=== PATIENT | male | born 1980 | race Caucasian/White ===

== ENCOUNTER 2017-01-19 19:13 | Emergency (ER) | payer OTHER ==
[2017-01-19 20:36] LABS: Hematocrit 44 % (42-52); Hemoglobin 15.5 g/dl (14.0-18.0); Mean Corpuscular HGB Conc 35 g/dl (31-36); Mean Corpuscular Hemoglobin 31 pg (27-31); Mean Corpuscular Volume 90 fL (80-94); Mean Platelet Volume 7 um3 (7.4-10.4); Red Blood Count 4.95 10^6/ul (4.0-5.4); Red Cell Distribution Width 13 % (10.5-15)
[2017-01-19 20:56] LABS: Albumin 4.3 g/dL (3.2-5.2); BUN/Creatinine Ratio 14.4 (8-20); Calcium 9.1 mg/dL (8.6-10.3); EGFR African American 113.3 (>60); EGFR Non-African American 88.1 (>60); Globulin 2.6 g/dL (2-4); Total Bilirubin 0.4 mg/dL (0.2-1.0); Total Protein 6.9 g/dL (6.4-8.9)
--- NOTE | 2017-01-19 21:08 | RAD ---
INDICATION: Chest pain COMPARISON: None TECHNIQUE: PA and lateral dual-energy views were obtained. FINDINGS: Bones/Soft Tissues: There are no acute bony findings. Cardiomediastinal: The cardiomediastinal silhouette is normal. Lungs: There are no infiltrates. Pleura: There are no pleural effusions. Other: None IMPRESSION: NO ACTIVE DISEASE.
--- NOTE | 2017-01-19 21:47 | ED ---
caleb Watson Timothy, scribed for Dennis Hernandez MD on 01/19/17 at 2016 . HPI Chest Pain - HPI Summary HPI Summary: William You is a 36 yo male presenting to [facility] with 8/10 constant left sided CP since 0900 this morning. He states the pain is worse when he lies on his side or back, and it hurts for him to clench his abd muscles, but resolves when he is sitting up. He states that he has had this pain before, but usually it resolves on its own quickly, but this is the first time it has stayed with him throughout the day. Pt denies cardiac Hx as well as SOB, diaphoresis, N/V. Pt states CP has resolved per triage. His Mhx includes depression, anxiety. - History of Current Complaint Chief Complaint: EDChestPainROMI Time Seen by Provider: 01/19/17 20:11 Hx Obtained From: Patient Onset/Duration: Started Hours Ago, Resolved Time of Onset: 09:00 Timing: Constant Initial Severity: Moderate Current Severity: Moderate Pain Intensity: 8 Pain Scale Used: 0-10 Numeric Chest Pain Location: Diffuse Chest Pain Radiates: No Aggravating Factor(s): Position - side and back Alleviating Factor(s): Position - sitting up Associated Signs and Symptoms: Positive: Chest Pain - Allergy/Home Medications Allergies/Adverse Reactions: Allergies Allergy/AdvReac Type Severity Reaction Status Date / Time No Known Allergies Allergy Verified 01/19/17 19:20 PMH/Surg Hx/FS Hx/Imm Hx Infectious Disease History: No Infectious Disease History: Denies: Traveled Outside the [place] in Last 30 Days - Family History Known Family History: Positive: Cardiac Disease, Hypertension, Diabetes Review of Systems Constitutional: Negative Negative: Skin Diaphoresis Eyes: Negative ENT: Negative Positive: Chest Pain Respiratory: Negative Negative: Shortness Of Breath Gastrointestinal: Negative Negative: Vomiting, Nausea Genitourinary: Negative Musculoskeletal: Negative Skin: Negative Neurological: Negative Psychological: Normal All Other Systems Reviewed And Are Negative: Yes Physical Exam Triage Information Reviewed: Yes Vital Signs On Initial Exam: Initial Vitals Temp Pulse Resp BP Pulse Ox 98.0 F 63 16 124/81 100 01/19/17 19:15 01/19/17 19:15 01/19/17 19:15 01/19/17 19:15 05/30/17 19:15 Vital Signs Reviewed: Yes Appearance: Positive: Well-Appearing, No Pain Distress Skin: Positive: Warm Head/Face: Positive: Normal Head/Face Inspection Eyes: Positive: MELY ENT: Positive: Hearing grossly normal Neck: Positive: Supple, Nontender Respiratory/Lung Sounds: Positive: Clear to Auscultation, Breath Sounds Present Cardiovascular: Positive: RRR Abdomen Description: Positive: Nontender, Soft Bowel Sounds: Positive: Present Musculoskeletal: Positive: Strength/ROM Intact Neurological: Positive: Alert, Oriented to Person Place, Time, Normal Gait Psychiatric: Positive: Affect/Mood Appropriate Diagnostics - Vital Signs Vital Signs Temp Pulse Resp BP Pulse Ox 01/19/17 19:20 98.0 F 63 16 124/81 100 01/19/17 19:15 98.0 F 63 16 124/81 100 - Laboratory Lab Results: Lab Results 01/19/17 01/19/17 01/19/17 Range/Units 20:28 20:28 20:28 WBC 7.0 (3.5-10.8) 10^3/ul RBC 4.95 (4.0-5.4) 10^6/ul Hgb 15.5 (14.0-18.0) g/dl Hct 44 (42-52) % MCV 90 (80-94) fL MCH 31 (27-31) pg MCHC 35 (31-36) g/dl RDW 13 (10.5-15) % Plt Count 286 (150-450) 10^3/ul MPV 7 L (7.4-10.4) um3 Neut % (Auto) 51.6 (38-83) % Lymph % (Auto) 28.5 (25-47) % [place] % (Auto) 11.2 H (1-9) % Eos % (Auto) 7.5 H (0-6) % Baso % (Auto) 1.2 (0-2) % Absolute Neuts (auto) 3.6 (1.5-7.7) 10^3/ul Absolute Lymphs (auto) 2.0 (1.0-4.8) 10^3/ul Absolute Monos (auto) 0.8 (0-0.8) 10^3/ul Absolute Eos (auto) 0.5 (0-0.6) 10^3/ul Absolute Basos (auto) 0.1 (0-0.2) 10^3/ul Absolute Nucleated RBC 0.01 10^3/ul Nucleated RBC % 0.1 Sodium 136 (133-145) mmol/L Potassium 4.0 (3.5-5.0) mmol/L Chloride 101 (101-111) mmol/L Carbon Dioxide 28 (22-32) mmol/L Anion Gap 7 (2-11) mmol/L BUN 14 (6-24) mg/dL Creatinine 0.97 (0.67-1.17) mg/dL Est GFR ( Amer) 113.3 (>60) Est GFR (Non-Af Amer) 88.1 (>60) BUN/Creatinine Ratio 14.4 (8-20) Glucose 96 (70-100) mg/dL Lactic Acid 0.9 (0.5-2.0) mmol/L Calcium 9.1 (8.6-10.3) mg/dL Total Bilirubin 0.40 (0.2-1.0) mg/dL AST 27 (13-39) U/L ALT 26 (7-52) U/L Alkaline Phosphatase 61 (34-104) U/L Troponin I 0.00 (<0.04) ng/mL Total Protein 6.9 (6.4-8.9) g/dL Albumin 4.3 (3.2-5.2) g/dL Globulin 2.6 (2-4) g/dL Albumin/Globulin Ratio 1.7 (1-3) Result Diagrams: 01/19/17 20:28 01/19/17 20:28 Lab Statement: Any lab studies that have been ordered have been reviewed, and results considered in the medical decision making process. - Radiology CXR Xray Interpretation: No Acute Changes - IMPRESSION: NO ACTIVE DISEASE. Radiology Interpretation Completed By: Radiologist - EKG 1921 Cardiac Rate: NL - 66 BPM EKG Interpretation: NSR @ 66 BPM, normal EKG Re-Evaluation - Re-Evaluation First Eval Change: Improved Chest Pain Course/Dx - Course Assessment/Plan: William You is a 36 yo male presenting to [facility] with constant CP since 0900 this morning, alleviated by sitting up, and present when he lays on his back or side or contracts his abd muscles. His EKG suggests NSR WNL. His CXR suggests no active disease. After clinical examination and review of his lab and imaging studies, he will be discharged home with chest pain with appropriate instructions. - Diagnoses Provider Diagnoses: Chest pain Discharge - Discharge Plan Condition: Stable Disposition: HOME Patient Education Materials: Chest Pain (ED) Referrals: [facility] [Primary Care Provider] - 2 Days Additional Instructions: Please follow up with your primary care physician regarding your visit to the emergency department today. Return to the emergency department with any new or recurring symptoms. The documentation as recorded by the caleb guerrero Timothy accurately reflects the service I personally performed and the decisions made by me, Dennis Hernandez MD.
[2017-01-19 22:15] VITALS: BP 117/57
== END 2017-01-19 22:14 | disposition home or self-care (01) ==
LOC: ED 19:13
DX: R07.9 Chest pain, unspecified (principal)
CPT/HCPCS: 36415; 71020; 80053; 83605; 84484; 85025; 93005; 99282